=== PATIENT | male | born 1945 ===

== ENCOUNTER 2018-08-14 07:29 | Day surgery (SDC) | payer MEDICARE ==
[2018-08-11 10:37] VITALS: BMI 21.5
[2018-08-14] MEDS ORDERED: Lactated Ringer's 1,000 ML IV ONE (10:05)
[2018-08-14] MEDS ORDERED: Propofol 10 mg/ml Inj (20 ML) ONE (10:09)
[2018-08-14] MEDS ORDERED: Lidocaine Hydrochloride 5 ML INJ ONE (10:10)
[2018-08-14 10:47] VITALS: TEMP 97.5
[2018-08-14 11:02] VITALS: O2SAT 100
[2018-08-14 11:58] VITALS: BP 118/67; PULSE 69; RESP 12
== END 2018-08-14 11:50 | disposition home or self-care (01) ==
LOC: C.ENDO 07:29
PROVIDERS: ATTEND Internal Medicine Gastroenterology
DX: Z12.11 Encounter for screening for malignant neoplasm of colon (principal); D12.5 Benign neoplasm of sigmoid colon; K64.8 Other hemorrhoids
CPT/HCPCS: 45380; 82948; 88305; J2704; J7120

== ENCOUNTER 2018-09-08 07:27 | Day surgery (SDC) | payer MEDICARE ==
[2018-09-01 09:08] VITALS: BMI 23.4
[2018-09-08] MEDS ORDERED: Absorbable Gelatin Sponge Size 12-7 ONE (09:09)
[2018-09-08] MEDS ORDERED: Midazolam 2 MG/2 ML VIAL ONE (09:20)
--- NOTE | 2018-09-08 09:42 | CP.SDSHP ---
Same Day Surgery H & P - History Proposed Procedure: Image guided liver mass biopsy Pre-Op Diagnosis: liver mass - Allergies Allergies: Allergies No Known Allergies Allergy (Verified 09/01/18 09:07) - Physical Exam Mental Status: Alert & Oriented x3 - Impression Impression: Pt with a 3 cm mass in dome of liver. Plan US and CT guided biopsy. Informed consent obtained. Pt. Evaluated Today:Candidate for Anesthesia & Procedure: Yes (ASA 2 Malampati 2) - Date & Time Date: 09/08/18 Time: 09:00 Short Stay Discharge - Short Stay Discharge Admitting Diagnosis/Reason for Visit: Dx: LIVER DOME LESION Disposition: HOME/ ROUTINE Referrals: FAMILY PROVIDER,NO [Primary Care Provider] -
--- NOTE | 2018-09-08 09:44 | PCM.SURG1 ---
Surgeon's Initial Post Op Note - Surgeon's Notes Surgeon: Peter Mendez MD Capture Manager: NONE Type of Anesthesia: IV Sedation Pre-Operative Diagnosis: Liver mass Operative Findings: US and CT confirmed a mass in the dome of liver. Post-Operative Diagnosis: Liver mass Operation Performed: Biopsy of mass Specimen/Specimens Removed: 18 gauge core x 3 Estimated Blood Loss: EBL {In ML}: 0 Blood Products Given: N/A Drains Used: No Drains Post-Op Condition: Good Date of Surgery/Procedure: 09/08/18 Time of Surgery/Procedure: 09:40
--- NOTE | 2018-09-08 13:56 | US ---
PROCEDURE: Date of procedure: Procedure: Ultrasound guidance of the liver to confirm liver mass. HISTORY: Liver Mass TECHNIQUE: Sonographic evaluation of the liver was performed using a curved probe. A 3.5 centimeter masses seen in the dome of the liver consistent with lesion seen on CT scan. IMPRESSION: Ultrasound of liver confirmed a mass in the dome of the liver consistent with mass seen on CT scan.
--- NOTE | 2018-09-09 14:48 | CT ---
PROCEDURE: Date of procedure: 09/08/2018 Procedure: 1. CT-guided percutaneous core biopsy of liver mass, CPT [address] guidance for biopsy, CPT 48985 Medications: The patient was sedated by the anesthesiologist with IV sedation and monitoring, 5 cc 1% lidocaine. Radiation: 755.95 MGy-cm HISTORY: liver mass TECHNIQUE: Following informed consent, the Pt's Abdomen was marked. Ultrasound patient abdomen confirmed presence of a mass within the dome of the right hepatic lobe. The Pt was placed supine on the CT table and procedure time out was performed. A noncontrast CT scan confirmed the presence of the 3.5 Centimeter mass within the dome of the right hepatic lobe. A skin localizer was placed on the patient's abdomen and a repeat CT scan performed. The skin was prepped and draped in the usual sterile fashion. After the patient was sedated by anesthesiologist and the skin anesthetized with 1% lidocaine, an 18 gauge core needle was advanced percutaneously under ultrasound guidance into the mass. Position was confirmed with CT. Upon confirmation of needle position, three core specimens were obtained and sent for routine pathology. The biopsy track was then embolized with Gelfoam. A post biopsy CT scan performed showed no hematoma. A dressing was applied. IMPRESSION: Liver mass located in dome of right hepatic lobe no cystic dating biopsy using ultrasound and CT guidance. Successful CT-guided core biopsy of right liver mass.
== END 2018-09-08 12:30 | disposition home or self-care (01) ==
LOC: C.SPRAD 07:27
PROVIDERS: ATTEND Radiology Vascular & Interventional Radiology
DX: R16.0 Hepatomegaly, not elsewhere classified (principal)
CPT/HCPCS: 47000; 76705; 77012; 82948; 88307; 88313; J2250; J3010

== ENCOUNTER 2018-09-29 09:34 | Day surgery (SDC) | payer MEDICARE ==
[2018-09-29] MEDS ORDERED: Midazolam 2 MG/2 ML VIAL ONE (11:01)
--- NOTE | 2018-09-29 11:23 | CP.SDSHP ---
Same Day Surgery H & P - History Proposed Procedure: CT guided biopsy of liver mass Pre-Op Diagnosis: Liver mass - Allergies Allergies: Allergies No Known Allergies Allergy (Verified 09/01/18 09:07) - Physical Exam Mental Status: Alert & Oriented x3 - Impression Impression: Pt with mass in dome of liver. Plan CT guided core biopsy. Pt. Evaluated Today:Candidate for Anesthesia & Procedure: Yes (ASA 3 Malampati 3) - Date & Time Date: 09/29/18 Time: 11:00 Short Stay Discharge - Short Stay Discharge Admitting Diagnosis/Reason for Visit: DX:LIVER DOME LESION Disposition: HOME/ ROUTINE Referrals: FAMILY PROVIDER,NO [Primary Care Provider] -
--- NOTE | 2018-09-29 11:24 | PCM.SURG1 ---
Surgeon's Initial Post Op Note - Surgeon's Notes Surgeon: Peter Hallman MD Account Development Representative: NONE Type of Anesthesia: IV Sedation Pre-Operative Diagnosis: Liver mass Operative Findings: CT showed a mass dome of liver with areas of possible calcification. Post-Operative Diagnosis: Liver mass Operation Performed: CT guided core biopsy of liver mass Specimen/Specimens Removed: 18 gauge core x 3 Estimated Blood Loss: EBL {In ML}: 0 Blood Products Given: N/A Drains Used: No Drains Post-Op Condition: Good Date of Surgery/Procedure: 09/29/18 Time of Surgery/Procedure: 11:20
[2018-09-29 11:25] VITALS: BMI 21.2
[2018-09-29 11:38] VITALS: TEMP 97; O2SAT 96
[2018-09-29 11:57] VITALS: BP 117/63; PULSE 59; RESP 15
--- NOTE | 2018-09-30 11:05 | US ---
Date of service: 09/29/2018 PROCEDURE: Ultrasound of liver HISTORY: LIVER MASS BX DONE BY DR NAVARRO COMPARISON: TECHNIQUE: Limb ultrasound was performed with a curved probe. FINDINGS: An area of decreased echogenicity is noted in the dome of the liver near the diaphragm. This is consistent with lesion seen on CT scan. The liver is otherwise normal in appearance without biliary dilatation or other masses. IMPRESSION: A small area of decreased echogenicity near the dome of the liver consistent with mass seen on CT scan.
--- NOTE | 2018-10-01 14:54 | CT ---
PROCEDURE: Date of procedure: 09/29/2018 Procedure: 1. CT-guided percutaneous core biopsy of liver mass, CPT [address] guidance for biopsy, CPT 59367 Medications: The patient was sedated by the anesthesiologist with IV sedation and monitoring, 5 cc 1% lidocaine. Radiation: 699.15 MGy-cm HISTORY: liver mass TECHNIQUE: Following informed consent, the Pt's Abdomen was marked. The Pt was placed supine on the CT table and procedure time out was performed. A noncontrast CT scan confirmed the presence of the 3.5 Centimeter mass in the dome of the right hepatic lobe. The mass has area of calcification. A skin localizer was placed on the patient's abdomen and a repeat CT scan performed. The skin was prepped and draped in the usual sterile fashion. After the patient was sedated by anesthesiologist and the skin anesthetized with 1% lidocaine, an 18 gauge core needle was advanced percutaneously under direct CT guidance into the mass. Upon confirmation of needle position, three core specimens were obtained and sent for routine pathology. The biopsy track was then embolized with Gelfoam. A post biopsy CT scan performed showed no hematoma. A dressing was applied. IMPRESSION: CT-guided core biopsy of right liver mass.
== END 2018-09-29 13:15 | disposition home or self-care (01) ==
LOC: C.SPRAD 09:34
PROVIDERS: ATTEND Radiology Vascular & Interventional Radiology
DX: K76.9 Liver disease, unspecified (principal); K73.9 Chronic hepatitis, unspecified; I10 Essential (primary) hypertension
CPT/HCPCS: 10005; 47000; 76942; 77012; 82948; 88307; J2250; J3010